=== PATIENT | male | born 1940 | race Caucasian/White ===

== ENCOUNTER 2024-08-01 11:36 | Observation (INO) | payer OTHER, MEDICARE ==
[~2024-08-01] VITALS: Ht 182.9 cm; Wt 83.0 kg
[2024-08-01 12:06] LABS: BASOPHILS ABSOLUTE AUTO 0.03 K/mm3 (0.00-0.23); BASOPHILS PERCENT AUTO 1 % (0-2); EOSINOPHILS PERCENT AUTO 3 % (0-6); Hematocrit 38.5 % (37.0-53.0); Hemoglobin 12.9 g/dL (13.5-17.5); IMMATURE GRAN ABSOLUTE AUTO 0.01 K/mm3 (0.00-0.10); IMMATURE GRAN PERCENT AUTO 0 % (0-1); LYMPHOCYTES ABSOLUTE AUTO 1.31 K/mm3 (0.84-5.20); LYMPHOCYTES PERCENT AUTO 33 % (21-46); MONOCYTES ABSOLUTE AUTO 0.37 K/mm3 (0.16-1.47); MONOCYTES PERCENT AUTO 9 % (4-13); Mean Corpuscular HGB 31.2 pg (26.0-34.0); Mean Corpuscular HGB Conc 33.5 g/dL (31.5-36.5); Mean Corpuscular Volume 93 fL (80-100); Mean Platelet Volume 10.7 fL (9.1-12.4); NEUTROPHILS ABSOLUTE AUTO 2.15 K/mm3 (1.96-9.15); NEUTROPHILS PERCENT AUTO 54 % (41-73); Platelet Count 104 K/mm3 (150-400); RDW Coefficient Variation 11.9 % (11.7-14.2); RDW Standard Deviation 41.1 fL (35.1-46.3); Red Blood Cell Count 4.13 M/mm3 (4.30-5.90); White Blood Cell Count 3.97 K/mm3 (4.00-11.30)
[2024-08-01 12:29] LABS: Albumin, Blood 3.6 g/dL (3.4-5.0); Albumin/Globulin Ratio 1.2 (0.8-1.8); Bilirubin, Total 0.7 mg/dL (0.1-1.0); Bun/Creatinine Ratio 12.8 (12.0-20.0); Calcium, Blood 9.1 mg/dL (8.5-10.1); Creatinine, Blood 1.33 mg/dL (0.60-1.20); Potassium, Blood 4.2 mmol/L (3.5-5.5); Total Protein, Blood 6.6 g/dL (6.4-8.2)
[2024-08-01] MEDS ORDERED: Nitroglycerin 1 INCH/GM PKT TOP ONE (13:10)
[2024-08-01] MEDS ORDERED: Morphine Sulfate 4 MG/1 ML Injection IV PRN (15:15)
[2024-08-01] MEDS ORDERED: Nitroglycerin 0.4 MG SUBL SL PRN (15:15)
[2024-08-01] MEDS ORDERED: Acetaminophen 325 MG TABLET PO PRN (15:25)
--- NOTE | 2024-08-01 17:18 | NUR ---
RECEIVED REPORT FROM ROBY (PIPELINE GANG SUPERVISOR), KADE (RN).
[2024-08-01 17:34] VITALS: BP 157/70
--- NOTE | 2024-08-01 18:22 | NUR ---
SHIFT SUMMARY/ADMIT 1728 PT ARRIVED TO ROOM AOX4, COOPERATIVE, ABLE TO MAKE NEEDS KNOWN. SBA TO BED FROM WHEELCHAIR. PT ON TELE CURRENLTY. HEART HEALTHY DIET. NO CHOCOLATE CAFFEINE AT MIDNIGHT FOR STRESS TEST IN [facility], NOT SURE WHAT TIME. PT HAS STRESS INCONTINENCE AT TIMES. BED IN LOWEST POSITION, CALL LIGHT WITHIN REAHCL.
[2024-08-01 20:31] VITALS: BP 132/64
[2024-08-01] MEDS ORDERED: LamoTRIgine 25 MG Tab PO SCH (21:00)
[2024-08-01] MEDS ORDERED: Heparin Sodium,Porcine 5,000 UNIT/0.5 ML SDV SC SCH (21:00)
[2024-08-01 23:41] VITALS: BP 123/67
[2024-08-02 04:34] VITALS: BP 125/67
--- NOTE | 2024-08-02 05:11 | NUR ---
PT REFUSED HEPARIN SC INJECTION. IT WAS EXPLAINED TO THE PT LALA REASON THAT HEPARN WAS GIVEN. PT REPORTED THAT HE "HATED SHOTS AND DIDNT WANT IT" HE VERBALIZED POTENTIAL RISK FOR NOT TAKING MEDICATION INCLUDING BLOOD CLOTS. PT HSD ASYMPTOMATIC BRADYCARDIA T/O THIS SHIFT. A&OX4, PLEASANT AND COOEPRATIVE. NO CHANGES NOTED T/O SHIFT.PT COMPLAINED OF L ANTERIOR ANKLE HURTING WHEN TOUCHED, BUT DENIES PAIN WHEN AMBULATING ON IT. PT STEADY ON FEET.
[2024-08-02 06:25] LABS: BASOPHILS ABSOLUTE AUTO 0.03 K/mm3 (0.00-0.23); BASOPHILS PERCENT AUTO 1 % (0-2); EOSINOPHILS PERCENT AUTO 3 % (0-6); Hematocrit 40.4 % (37.0-53.0); Hemoglobin 13.4 g/dL (13.5-17.5); IMMATURE GRAN ABSOLUTE AUTO 0.01 K/mm3 (0.00-0.10); IMMATURE GRAN PERCENT AUTO 0 % (0-1); LYMPHOCYTES ABSOLUTE AUTO 1.19 K/mm3 (0.84-5.20); LYMPHOCYTES PERCENT AUTO 40 % (21-46); MONOCYTES ABSOLUTE AUTO 0.35 K/mm3 (0.16-1.47); MONOCYTES PERCENT AUTO 12 % (4-13); Mean Corpuscular HGB 30.7 pg (26.0-34.0); Mean Corpuscular HGB Conc 33.2 g/dL (31.5-36.5); Mean Corpuscular Volume 93 fL (80-100); Mean Platelet Volume 10.5 fL (9.1-12.4); NEUTROPHILS PERCENT AUTO 44 % (41-73); Platelet Count 111 K/mm3 (150-400); RDW Coefficient Variation 11.9 % (11.7-14.2); RDW Standard Deviation 40.3 fL (35.1-46.3); Red Blood Cell Count 4.36 M/mm3 (4.30-5.90); White Blood Cell Count 2.98 K/mm3 (4.00-11.30)
[2024-08-02 06:51] LABS: Anion Gap 6 mmol/L (3-11); Blood Urea Nitrogen 17 mg/dL (8-24); Bun/Creatinine Ratio 12.6 (12.0-20.0); CHOL/HDL RATIO 2.3; CO2, Blood 28 mmol/L (21-32); Calcium, Blood 8.9 mg/dL (8.5-10.1); Chloride, Blood 110 mmol/L (98-108); Cholesterol 117 mg/dL (50-200); Creatinine, Blood 1.35 mg/dL (0.60-1.20); Glomerular Filtration Rate 51 (60-); Glucose, Blood 80 mg/dL (70-99); HDL Cholesterol 51 mg/dL (>39); Low Density Lipoprotein Chol 50 mg/dL (0-110); Potassium, Blood 4.4 mmol/L (3.5-5.5); Sodium, Blood 140 mmol/L (136-145); Triglycerides 81 mg/dL (30-160); Very Low Density Lipoprot Chol 16 mg/dL (6-32)
[2024-08-02 07:40] VITALS: BP 132/66
[2024-08-02] MEDS ORDERED: AmLODIPine Besylate 5 MG Tab PO SCH (09:00)
[2024-08-02] MEDS ORDERED: Atorvastatin 40 MG Tab PO SCH ×2 (09:00)
[2024-08-02] MEDS ORDERED: Aspirin 81 MG Chew PO SCH (09:00)
[2024-08-02] MEDS ORDERED: LamoTRIgine 25 MG Tab PO SCH (09:00)
[2024-08-02] MEDS ORDERED: Cyanocobalamin 500 MCG Tab PO SCH (09:00)
[2024-08-02] MEDS ORDERED: Caffeine Citrated 60 MG/3 ML Vial ONE (11:25)
[2024-08-02] MEDS ORDERED: Regadenoson 0.4 MG/5 ML SYRINGE ONE (11:25)
[2024-08-02] MEDS ORDERED: ACET500 PO (15:46)
[2024-08-02] MEDS ORDERED: AMLO10 (15:47)
[2024-08-02] MEDS ORDERED: ASPI81CH PO (15:48)
[2024-08-02] MEDS ORDERED: Vitamin D1000 UNI1 PO (15:48)
[2024-08-02] MEDS ORDERED: TUMS500 MG PO (15:48)
[2024-08-02] MEDS ORDERED: B-12500 MC2 PO (15:49)
[2024-08-02] MEDS ORDERED: LAMO25 PO (15:51)
[2024-08-02] MEDS ORDERED: LIDO700A20 TOP (15:51)
[2024-08-02] MEDS ORDERED: Crestor40 MG PO (15:52)
[2024-08-02] MEDS ORDERED: MIRALAX17 GM PO (15:52)
--- NOTE | 2024-08-02 17:36 | NUR ---
PT DISCHARGED THE PT VERBALIZED UNDERSTANDING OF THE DC INSTRUCTIONS. THE PTS BELONGINGS WERE RETURNED TO HIM. THE PT WAS TRANSFERED VIA WHEELCHAIR TO THE FRONT TO MEET A TAXI ACCOMPANIED BY THE DIE FITTER
--- NOTE | 2024-08-02 17:44 | NUR ---
SHIFT SUMMARY/DISCHARGE PT AOX4, COOPERATIVE, ABLE TO MAKE NEEDS KNOWN. AMBULATORY IN ROOM. TELE DC'D BY THIS RN, IV DC'D BY THIS RN. LEFT VOICEMAIL TO [facility] ABOUT [facility] BACK TO [facility] FOR [facility], NO RESPONSE. PT OPTED TO CALL [facility]I AND USE OWN MONEY TO PAY FOR RIDE BACK TO [facility]. PT LEFT WHILE THIS RN WAS ON BREAK. ELINOR RN WENT OVER DC PAPERWORK WITH PT, LAURA MARSH TOOK PT DOWN TO ENTRANCE VIA WHEELCHAIR.
== END 2024-08-02 17:35 | disposition home or self-care (01) ==
LOC: ER 11:36 → MEDS 11:37
PROVIDERS: Emergency Medicine; ADMIT Internal Medicine
DX: I25.118 Atherosclerotic heart disease of native coronary artery with other forms of angina pectoris (principal); F31.81 Bipolar II disorder; G89.29 Other chronic pain; I12.9 Hypertensive chronic kidney disease with stage 1 through stage 4 chronic kidney disease, or unspecified chronic kidney disease; N18.31 Chronic kidney disease, stage 3a; K59.09 Other constipation; M50.30 Other cervical disc degeneration, unspecified cervical region; F43.10 Post-traumatic stress disorder, unspecified; E78.5 Hyperlipidemia, unspecified; Z87.891 Personal history of nicotine dependence; Z95.1 Presence of aortocoronary bypass graft
CPT/HCPCS: 36415; 71045; 78452; 80048; 80053; 80061; 83690; 84484; 85025; 93005; 93010; 93017; 93306; 99285-25; A9270; A9500; G0378; J0706; J1644; J2785